=== PATIENT | female | born 2000 | race American Indian/Alaskan Native ===

== ENCOUNTER 2019-10-29 10:43 | Emergency (ER) | payer OTHER ==
[2019-10-29 10:48] VITALS: BP 155/84
--- NOTE | 2019-10-29 11:45 | Emergency Department Report ---
ED Abdominal Pain HPI - General Chief Complaint: Abdominal Pain Stated Complaint: STOMACH PAIN Time Seen by Provider: 10/29/19 11:43 Source: patient Mode of arrival: Wheelchair Limitations: No Limitations - History of Present Illness Initial Comments: 18-year-old female states that she has nausea, vomiting and cramping x1 day. Patient states that her symptoms awaken her earlier this morning. Patient states she has a history of gastritis and is scheduled for a CT scan in this upcoming month. Patient denies trauma to her abdomen, headache, shortness of breath, chest pain. Patient further states that she does not have any changes in bowel habits or urination. Patient states that her last menstrual cycle was over a month ago. MD Complaint: abdominal pain -: This morning Location: diffuse Radiation: none Migration to: no migration Severity: moderate Consistency: colicky Improves With: nothing Worsens With: nothing Associated Symptoms: nausea, vomiting - Related Data LMP (females 10-50): 1 month Allergies Allergy/AdvReac Type Severity Reaction Status Date / Time No Known Allergies Allergy Unverified 10/29/19 10:46 ED Review of Systems ROS: Stated complaint: STOMACH PAIN Other details as noted in HPI Constitutional: malaise. denies: chills, fever, weakness Eyes: denies: eye pain, eye discharge, vision change ENT: denies: ear pain, throat pain, hearing loss Respiratory: no symptoms reported Cardiovascular: denies: chest pain, palpitations, dyspnea on exertion Endocrine: no symptoms reported Gastrointestinal: as per HPI Genitourinary: denies: urgency, dysuria, frequency Musculoskeletal: denies: back pain, joint swelling, arthralgia Skin: denies: rash, pruritus Neurological: denies: numbness, paresthesias, confusion Psychiatric: denies: anxiety, depression, auditory hallucinations Hematological/Lymphatic: denies: easy bleeding, easy bruising, swollen glands ED Past Medical Hx - Past Medical History Previous Medical History?: No Additional medical history: History of gastritis - Surgical History Past Surgical History?: No ED Physical Exam - General Limitations: No Limitations General appearance: other (Appears to be in malaise) - Head Head exam: Present: atraumatic, normocephalic - Eye Eye exam: Present: normal appearance, PERRL, EOMI - ENT ENT exam: Present: normal exam, normal orophraynx, mucous membranes dry - Neck Neck exam: Present: normal inspection, full ROM. Absent: lymphadenopathy - Respiratory Respiratory exam: Present: normal lung sounds bilaterally. Absent: respiratory distress, wheezes - Cardiovascular Cardiovascular Exam: Present: regular rate, normal rhythm, normal heart sounds - GI/Abdominal GI/Abdominal exam: Present: soft, normal bowel sounds. Absent: distended, tenderness - Rectal Rectal exam: Present: deferred - Extremities Exam Extremities exam: Present: normal inspection, full ROM. Absent: tenderness - Back Exam Back exam: Present: normal inspection, full ROM. Absent: tenderness, CVA tenderness (R), CVA tenderness (L) - Neurological Exam Neurological exam: Present: alert, altered, oriented X3, CN II-XII intact, normal gait - Psychiatric Psychiatric exam: Present: normal affect, normal mood. Absent: depressed - Skin Skin exam: Present: warm, dry, intact - Other Other exam information: Patient is actively vomiting. ED Course Vital Signs 10/29/19 10:47 Temperature 98.1 F Pulse Rate 90 Respiratory 18 Rate Blood Pressure 155/84 [Right] O2 Sat by Pulse 99 Oximetry ED Medical Decision Making - Lab Data Result diagrams: 10/29/19 12:05 - Medical Decision Making 19-year-old female states that she has nausea, vomiting and cramping x1 day. Patient states that her symptoms awaken her earlier this morning. Patient states she has a history of gastritis and is scheduled for a CT scan in this upcoming month. Patient denies trauma to her abdomen, headache, shortness of breath, chest pain. Patient further states that she does not have any changes in bowel habits or urination. Patient states that her last menstrual cycle was over a month ago. Patient was given fluids and metoclopramide. Patient stated that she felt better and has decreased abdominal pain, vomiting has ceased. Patient was then told that her test was positive. Patient was told that imaging via ultrasound was needed to approximate how far along her is. Patient became emotional after being told that she needs to follow-up with [facility] or her [facility] after ER visit. Patient left the ER with her before discharge. Critical care attestation.: If time is entered above; I have spent that time in minutes in the direct care o f this critically ill patient, excluding procedure time. ED Disposition Clinical Impression: Disposition: DC-07 LEFT AGAINST MED ADVICE Is pt being admited?: No Does the pt Need Aspirin: No Condition: Stable Instructions: Abdominal Pain (ED) Referrals: PRIMARY CARE, [Primary Care Provider] - 3-5 Days Forms: AMA Form Time of Disposition: 13:49
[2019-10-29] MEDS ORDERED: SODIUM CHLORIDE 0.9% 1000 ML 1,000 ML IV ONE (12:30)
[2019-10-29] MEDS ORDERED: METOCLOPRAMIDE 10 MG/2 ML INJ IV ONE (12:31)
[2019-10-29] MEDS ORDERED: ACETAMINOPHEN 325 MG TAB PO ONE (12:31)
[2019-10-29 12:37] LABS: Hematocrit 37.3 % (30.3-42.9); Hemoglobin 12.3 gm/dl (10.1-14.3); Mean Corpuscular HGB Conc 33 % (30-34); Mean Corpuscular Volume 89 fl (79-97); Platelet Count 332 K/mm3 (140-440); Red Blood Count 4.21 M/mm3 (3.65-5.03); Red Cell Distribution Width 15.9 % (13.2-15.2)
[2019-10-29 13:13] LABS: Basophils % (Manual) 0 % (0.0-1.8); Eosinophils % (Manual) 0 % (0.0-4.3); Platelet Estimate Consistent w Auto; RBC Morphology Normal; Total Cells Counted 100
== END 2019-10-29 13:45 | disposition left against medical advice (07) ==
LOC: ED 10:43
DX: O26.891 Other specified pregnancy related conditions, first trimester (principal); R10.9 Unspecified abdominal pain; O21.8 Other vomiting complicating pregnancy; Z3A.00 Weeks of gestation of pregnancy not specified
CPT/HCPCS: 36415; 83690; 84702; 84703; 85007; 85025; 96361; 96374; 99283; J2765; J7030

== ENCOUNTER 2020-01-20 23:02 | Emergency (ER) | payer OTHER ==
[2020-01-20] MEDS ORDERED: SODIUM CHLORIDE 0.9% 1000 ML 1,000 ML IV ONE (23:59)
[2020-01-20] MEDS ORDERED: METOCLOPRAMIDE 10 MG/2 ML INJ IV ONE (23:59)
--- NOTE | 2020-01-21 00:05 | Emergency Department Report ---
ED HPI - General Chief complaint: Nausea/Vomiting/Diarrhea Stated complaint: VOMITING X 2 DAYS 18 WKS PREG Time Seen by Provider: 01/20/20 23:24 Source: patient Mode of arrival: Ambulatory Limitations: No Limitations - History of Present Illness Initial comments: 19-year-old female, G1, P0, 18 weeks , with hyperemesis gravidarum presents to ED with worsening nausea and vomiting over the last 2 days. Patient states she is currently taking Phenergan and Zofran at home. Patient states she "does not do well" with Reglan. Patient states it makes her anxious. Patient reports diffuse abdominal pain from all the vomiting. She denies any vaginal bleeding. MD Complaint: other -: days(s) (2) Severity: moderate Improves with: none Worsens with: none, eating Associated symptoms: nausea/vomiting, abdominal pain. denies: vaginal bleeding Vaginal bleeding: none :: Yes Number of weeks : 18 OB History - Current : hyperemesis Pre- care: followed by OB - Related Data : 1 Para: 0 Previous Rx's Medication Instructions Recorded Last Taken Type Ondansetron [Zofran Odt] 4 mg PO Q8HR PRN #20 tab.rapdis 11/18/19 Unknown Rx Promethazine [Phenergan] 25 mg [place] Q6HR PRN #15 supp.rect 11/18/19 Unknown Rx cephALEXin [Keflex] 500 mg PO Q12HR 5 Days #10 cap 11/18/19 Unknown Rx Ondansetron [Zofran Odt] 4 mg PO Q8HR PRN #20 tab.rapdis 12/30/19 Unknown Rx Promethazine [Phenergan] 25 mg PO Q6HR PRN #30 tab 01/21/20 Unknown Rx Allergies Allergy/AdvReac Type Severity Reaction Status Date / Time No Known Allergies Allergy Unverified 10/29/19 10:46 ED Review of Systems ROS: Stated complaint: VOMITING X 2 DAYS 18 WKS PREG Other details as noted in HPI Comment: All other systems reviewed and negative Constitutional: denies: fever Gastrointestinal: abdominal pain, nausea, vomiting Genitourinary: other (Denies vaginal bleeding) ED Past Medical Hx - Past Medical History Previous Medical History?: Yes Additional medical history: History of gastritis - Surgical History Past Surgical History?: Yes Hx Cholecystectomy: Yes - Social History Smoking Status: Never Smoker Substance Use Type: None - Medications Home Medications: Home Medications Medication Instructions Recorded Confirmed Last Taken Type Ondansetron [Zofran Odt] 4 mg PO Q8HR PRN #20 tab.rapdis 11/18/19 Unknown Rx Promethazine [Phenergan] 25 mg [place] Q6HR PRN #15 supp.rect 11/18/19 Unknown Rx cephALEXin [Keflex] 500 mg PO Q12HR 5 Days #10 cap 11/18/19 Unknown Rx Ondansetron [Zofran Odt] 4 mg PO Q8HR PRN #20 tab.rapdis 12/30/19 Unknown Rx Promethazine [Phenergan] 25 mg PO Q6HR PRN #30 tab 01/21/20 Unknown Rx ED Physical Exam - General Limitations: No Limitations General appearance: alert - Head Head exam: Present: atraumatic, normocephalic - Eye Eye exam: Present: normal appearance - ENT ENT exam: Present: mucous membranes moist - Neck Neck exam: Present: normal inspection - Respiratory Respiratory exam: Present: normal lung sounds bilaterally. Absent: respiratory distress - Cardiovascular Cardiovascular Exam: Present: normal rhythm, tachycardia - GI/Abdominal GI/Abdominal exam: Present: soft, other (Patient is actively vomiting). Absent: distended, tenderness - Extremities Exam Extremities exam: Present: normal inspection - Neurological Exam Neurological exam: Present: alert, oriented X3 - Psychiatric Psychiatric exam: Present: normal affect, normal mood - Skin Skin exam: Present: warm, dry, intact, normal color ED Course Vital Signs 01/20/20 01/21/20 01/21/20 23:15 00:01 01:01 Temperature 98.2 F Pulse Rate 103 H Respiratory 20 Rate Blood Pressure 142/97 159/105 146/95 Blood Pressure [Left] O2 Sat by Pulse 97 98 99 Oximetry 01/21/20 01/21/20 01/21/20 01:50 02:00 02:50 Temperature Pulse Rate Respiratory 16 16 Rate Blood Pressure 120/79 Blood Pressure [Left] O2 Sat by Pulse 100 Oximetry 01/21/20 01/21/20 03:01 04:24 Temperature 98.1 F Pulse Rate 74 Respiratory 16 Rate Blood Pressure 120/79 Blood Pressure 122/71 [Left] O2 Sat by Pulse 98 100 Oximetry ED Medical Decision Making - Lab Data Result diagrams: 01/21/20 Unknown 01/20/20 23:35 - Medical Decision Making 19-year-old female with hyperemesis gravidarum. IV fluids and Zofran given. UA shows elevated WBCs, however there are also many epithelial cells, this is not a clean sample. Patient is not having any UTI symptoms. Will not prescribe antibiotics. Patient is feeling much better at this time. Feels okay for discharge home. Patient has appointment with her [facility]ST [facility]ANER in 2 days on 01/23/2020. - Differential Diagnosis Hyperemesis gravidarum, dehydration, electrolyte abnormality Critical care attestation.: If time is entered above; I have spent that time in minutes in the direct care of this critically ill patient, excluding procedure time. ED Disposition Clinical Impression: Hyperemesis gravidarum, Dehydration Disposition: - TO HOME OR SELFCARE Is pt being admited?: No Condition: Stable Instructions: Hyperemesis Gravidarum (ED) Prescriptions: Promethazine [Phenergan] 25 mg PO Q6HR PRN #30 tab PRN Reason: Nausea Referrals: PRIMARY CARE, [Primary Care Provider] - 3-5 Days Time of Disposition: 04:04
[2020-01-21] MEDS ORDERED: ONDANSETRON 4 MG/2 ML INJ ONE (00:08)
[2020-01-21] MEDS ORDERED: ONDANSETRON 4 MG/2 ML INJ IV ONE (00:08)
[2020-01-21 00:15] LABS: Basophils # (Auto) 0.1 K/mm3 (0.0-0.1); Basophils % (Auto) 0.6 % (0.0-1.8); Eosinophils % (Auto) 0.1 % (0.0-4.3); Hematocrit 33.2 % (30.3-42.9); Hemoglobin 11.1 gm/dl (10.1-14.3); Lymphocytes # (Auto) 1.8 K/mm3 (1.2-5.4); Lymphocytes % (Auto) 14.3 % (13.4-35.0); Mean Corpuscular HGB Conc 33 % (30-34); Mean Corpuscular Volume 88 fl (79-97); Monocytes # (Auto) 0.4 K/mm3 (0.0-0.8); Monocytes % (Auto) 3.4 % (0.0-7.3); Platelet Count 301 K/mm3 (140-440); Red Blood Count 3.78 M/mm3 (3.65-5.03); Red Cell Distribution Width 14.9 % (13.2-15.2)
[2020-01-21] MEDS ORDERED: ACETAMINOPHEN 325 MG TAB PO ONE (00:16)
[2020-01-21] MEDS ORDERED: ACETAMINOPHEN 325 MG TAB ONE (00:16)
[2020-01-21 00:26] LABS: Blood Urea Nitrogen 9 mg/dL (7-17); Calcium 9.2 mg/dL (8.4-10.2); Hemolysis Index 5
[2020-01-21 00:33] LABS: BUN/Creatinine Ratio 18
[2020-01-21 01:51] LABS: Bilirubin,Urine NEG (Negative); Blood,Urine NEG (Negative); Color,Urine Yellow (Yellow); Mucus,Urine 3+ /HPF
[2020-01-21] MEDS ORDERED: PROMETHAZINE 25 MG TAB PO ONE (04:22)
[2020-01-21 04:25] VITALS: BP 122/71
== END 2020-01-21 04:40 | disposition home or self-care (01) ==
LOC: ED 23:02
DX: O21.0 Mild hyperemesis gravidarum (principal); O26.892 Other specified pregnancy related conditions, second trimester; E86.0 Dehydration; Z90.49 Acquired absence of other specified parts of digestive tract; Z79.899 Other long term (current) drug therapy; Z3A.18 18 weeks gestation of pregnancy
CPT/HCPCS: 36415; 80048; 81001; 84702; 85025; 87086; 96361; 96374; 99284; J2405; J7030; Q0169

== ENCOUNTER 2020-05-17 10:05 | Emergency (ER) | payer OTHER ==
[2020-05-17] MEDS ORDERED: ONDANSETRON 4 MG/2 ML INJ IM ONE (10:18)
--- NOTE | 2020-05-17 10:36 | Emergency Department Report ---
ED N/V/D HPI - General Chief complaint: Nausea/Vomiting/Diarrhea Stated complaint: NAUSEA Time Seen by Provider: 05/17/20 10:20 Source: patient Mode of arrival: Ambulatory Limitations: No Limitations - History of Present Illness Initial comments: Patient is a 19-year-old female with history of preeclampsia during . Patient is 1 month . She reports nausea and dizziness. Upon my evaluation the patient does not provide any additional history. History is obtained from triage nursing staff. - Related Data Previous Rx's Medication Instructions Recorded Last Taken Type Ondansetron [Zofran Odt] 4 mg PO Q8HR PRN #20 tab.rapdis 11/18/19 Unknown Rx Promethazine [Phenergan] 25 mg [place] Q6HR PRN #15 supp.rect 11/18/19 Unknown Rx cephALEXin [Keflex] 500 mg PO Q12HR 5 Days #10 cap 11/18/19 Unknown Rx Ondansetron [Zofran Odt] 4 mg PO Q8HR PRN #20 tab.rapdis 12/30/19 Unknown Rx Promethazine [Phenergan] 25 mg PO Q6HR PRN #30 tab 01/21/20 Unknown Rx Allergies Allergy/AdvReac Type Severity Reaction Status Date / Time No Known Allergies Allergy Unverified 10/29/19 10:46 ED Review of Systems ROS: Stated complaint: NAUSEA Other details as noted in HPI Comment: Unobtainable due to pts medical conditions ED Past Medical Hx - Past Medical History Additional medical history: History of gastritis - Surgical History Hx Cholecystectomy: Yes - Social History Smoking Status: Never Smoker Substance Use Type: None - Medications Home Medications: Home Medications Medication Instructions Recorded Confirmed Last Taken Type Ondansetron [Zofran Odt] 4 mg PO Q8HR PRN #20 tab.rapdis 11/18/19 Unknown Rx Promethazine [Phenergan] 25 mg [place] Q6HR PRN #15 supp.rect 11/18/19 Unknown Rx cephALEXin [Keflex] 500 mg PO Q12HR 5 Days #10 cap 11/18/19 Unknown Rx Ondansetron [Zofran Odt] 4 mg PO Q8HR PRN #20 tab.rapdis 12/30/19 Unknown Rx Promethazine [Phenergan] 25 mg PO Q6HR PRN #30 tab 09/07/20 Unknown Rx ED Physical Exam - General Limitations: No Limitations General appearance: lethargic - Head Head exam: Present: atraumatic, normocephalic - Eye Eye exam: Present: normal appearance Pupils: Present: normal accommodation - ENT ENT exam: Present: normal exam - Neck Neck exam: Present: normal inspection - Respiratory Respiratory exam: Present: normal lung sounds bilaterally. Absent: respiratory distress - Cardiovascular Cardiovascular Exam: Present: regular rate, normal rhythm, normal heart sounds - GI/Abdominal GI/Abdominal exam: Present: soft, tenderness - Rectal Rectal exam: Present: deferred - Extremities Exam Extremities exam: Present: normal inspection - Back Exam Back exam: Present: normal inspection - Neurological Exam Neurological exam: Present: other (On my exam patient does not open her eyes or speak. However the tech informed me that the patient was alert asked for her phone and manager therapy and as low as a warm blanket.) - Psychiatric Psychiatric exam: Present: normal affect - Skin Skin exam: Present: warm, dry, intact ED Course Vital Signs 05/17/20 05/17/20 10:26 13:21 Pulse Rate 103 H 94 H Respiratory 18 16 Rate Blood Pressure 141/96 162/100 [Right] O2 Sat by Pulse 97 100 Oximetry - Reevaluation(s) Reevaluation #1: 05/17/20 10:36 The tech assigned to the patient informed me that the patient is alert, asking for herself as well as manager therapy. She is also asking for a warm blanket. Reevaluation #2: 05/17/20 14:56 Patient's urine protein to urine creatinine ratio is less than 0.3 it is 0.15. Patient also states that her delivery date was March 25. Patient is more than 6 weeks out from delivering and she has no additional signs of eclampsia or preeclampsia. At this time we have treated patient symptoms of nausea given IV fluids patient likely to be discharged after she is tolerating p.o. Reevaluation #3: 05/17/20 16:12 Patient states she is improved. She is ambulatory. She has no additional twitching abnormalities. She desires discharge. Plan for discharge and patient to follow-up with primary care. 05/17/20 16:12 Please note the patient has been alert, oriented during this time after initially being unwilling to give additional history participate in her exam. ED Medical Decision Making - Lab Data Result diagrams: 05/17/20 10:34 05/17/20 10:34 - Medical Decision Making Patient is a 19-year-old female returns the emergency department with complaint of nausea vomiting. She also has had some dizziness. Patient is 1 month and has a history of preeclampsia during her . Patient's blood pressure is 141/76 on initial check. Plan to continue monitoring patient's blood pressures, treating her nausea with Zofran. Work-up will include EKG, chest x-ray, CT head as well as labs including labs for tox metabolic cause to her symptoms. If patient remains hypertensive or has any evidence of seizure activity she may be developing preeclampsia or eclampsia can and will likely require admission however her if her blood pressure improves her symptoms improve and if we find another cause her symptoms she will likely be discharged home. Critical care attestation.: If time is entered above; I have spent that time in minutes in the direct care of this critically ill patient, excluding procedure time. ED Disposition Clinical Impression: Nausea and vomiting Disposition: DC-01 TO HOME OR SELFCARE Is pt being admited?: No Does the pt Need Aspirin: No Condition: Stable Instructions: Nausea, Adult Referrals: PRIMARY CARE, [Primary Care Provider] - 3-5 Days
[2020-05-17 11:09] LABS: Hematocrit 30.6 % (30.3-42.9); Hemoglobin 9.9 gm/dl (10.1-14.3); Mean Corpuscular HGB Conc 33 % (30-34); Mean Corpuscular Volume 81 fl (79-97); Platelet Count 397 K/mm3 (140-440); Red Blood Count 3.77 M/mm3 (3.65-5.03); Red Cell Distribution Width 16.3 % (13.2-15.2)
[2020-05-17] MEDS ORDERED: SODIUM CHLORIDE 0.9% 1000 ML 1,000 ML IV ONE (11:33)
[2020-05-17 11:36] LABS: Alanine Aminotransferase 10 units/L (7-56); Albumin 4.5 g/dL (3.9-5); Blood Urea Nitrogen 11 mg/dL (7-17); Calcium 9.3 mg/dL (8.4-10.2); Hemolysis Index 8
[2020-05-17 12:14] LABS: Anisocytosis 1+; Burr Cells Few; Platelet Estimate Consistent w Auto; Total Cells Counted 100
[2020-05-17 12:15] LABS: BUN/Creatinine Ratio 18
[2020-05-17 13:13] LABS: Bacteria,Urine 1+ /HPF (Negative); Bilirubin,Urine NEG (Negative); Blood,Urine NEG (Negative); Color,Urine Yellow (Yellow); Mucus,Urine FEW /HPF; Protein,Urine <15 mg/dL mg/dL (Negative); Urobilinogen,Urine < 2.0 mg/dL (<2.0)
[2020-05-17 13:17] LABS: Amphetamine Screen,Urine Negative; Benzodiazepines Screen,Urine Negative; Cocaine Screen,Urine Negative; Methadone Screen,Urine Negative; Opiate Screen,Urine Negative
[2020-05-17 13:21] VITALS: BP 162/100
[2020-05-17] MEDS ORDERED: ONDANSETRON 4 MG/2 ML INJ IV ONE (13:37)
[2020-05-17] MEDS ORDERED: cefTRIAXone/NS 1 GM/50 ML 1 GM/50 ML BAG IV ONE (13:37)
[2020-05-17 13:47] LABS: Cannabinoid Screen,Urine PRESUMPTIVE POSITIVE
[2020-05-17] MEDS ORDERED: HALOPERIDOL LACTATE 5 MG/1 ML INJ IV ONE (15:14)
[2020-05-17] MEDS ORDERED: LORazepam 2 MG/ML VIAL IV ONE (15:55)
== END 2020-05-17 16:24 | disposition home or self-care (01) ==
LOC: ED 10:05
DX: O90.89 Other complications of the puerperium, not elsewhere classified (principal); R11.2 Nausea with vomiting, unspecified; R42 Dizziness and giddiness; Z90.49 Acquired absence of other specified parts of digestive tract; Z79.899 Other long term (current) drug therapy
CPT/HCPCS: 36415; 80053; 80307; 81001; 82570; 82962; 83690; 83735; 84702; 85007; 85025; 96361; 96365; 96372; 96375; 99283; J0696; J1630; J2405; J7030; 80320; G0480